=== PATIENT | male | born 1965 | race Caucasian/White ===

== ENCOUNTER 2017-12-22 18:01 | Emergency (ER) | payer OTHER ==
[~2017-12-22] VITALS: Ht 170.2 cm; Wt 80.0 kg
[2017-12-22] MEDS ORDERED: DIPH,PERTUSS(ACELL),TET VAC/PF 0.5 ML IM-VACC ONE ×2 (18:29→18:30)
[2017-12-22] MEDS ORDERED: PROPOFOL 10 MG/ML, 20ML ONE (19:07)
[2017-12-22] MEDS ORDERED: PROPOFOL 10 MG/ML, 20ML IVPush ONE (20:00)
[2017-12-22] MEDS ORDERED: BACITRACIN ZINC OINT 500U/GM, 0.9 GM ONE (20:12)
[2017-12-22 20:40] VITALS: BP 143/93
== END 2017-12-22 20:45 | disposition home or self-care (01) ==
LOC: ED 20:05
DX: S43.084A Other dislocation of right shoulder joint, initial encounter (principal); S20.319A Abrasion of unspecified front wall of thorax, initial encounter; S80.811A Abrasion, right lower leg, initial encounter; S80.212A Abrasion, left knee, initial encounter; V86.69XA Passenger of other special all-terrain or other off-road motor vehicle injured in nontraffic accident, initial encounter; Y93.89 Activity, other specified; Y92.39 Other specified sports and athletic area as the place of occurrence of the external cause; Y99.8 Other external cause status
CPT/HCPCS: 23655; 71045; 90715; 96372; 99152; 99153; 99285